=== PATIENT | male | born 1980 | race Two or more races ===

== ENCOUNTER 2019-07-02 03:41 | Inpatient (IN) | payer MEDICAID ==
[~2019-07-02] VITALS: Ht 175.3 cm; Wt 46.3 kg
[2019-07-02] MEDS ORDERED: ZOLPIDEM TARTRATE 10 MG TABLET PO PRN (23:30)
[2019-07-02] MEDS ORDERED: HALOPERIDOL 5 MG TABLET PO PRN (23:30)
[2019-07-02] MEDS ORDERED: LORazepam 2 MG TABLET PO PRN (23:30)
[2019-07-03 05:03] VITALS: BP 97/72
[2019-07-03] MEDS ORDERED: ACETAMINOPHEN 325 MG TABLET PO PRN (06:30)
[2019-07-03] MEDS ORDERED: ALBUTEROL SULFATE HFA 90 MCG/PUFF 8 GM INHALER IH PRN (06:30)
[2019-07-03] MEDS ORDERED: IBUPROFEN 400 MG TABLET PO PRN (06:30)
[2019-07-03] MEDS ORDERED: MAGNESIUM HYDROXIDE SUSPENSION 30 ML UDCUP PO PRN (06:30)
[2019-07-03] MEDS ORDERED: ONDANSETRON HCL 4 MG TABLET PO PRN (06:30)
[2019-07-03] MEDS ORDERED: CloNIDine HCL 0.1 MG TABLET PO PRN (06:30)
[2019-07-03] MEDS ORDERED: MAG HYDROX/AL HYDROX/SIMETH ES 30 ML SUSPENSION UDCUP PO PRN (06:30)
[2019-07-03] MEDS ORDERED: DOCUSATE SODIUM 100 MG CAPSULE PO PRN (06:30)
[2019-07-03] MEDS ORDERED: LOPERAMIDE HCL 2 MG CAPSULE PO PRN (06:30)
[2019-07-03] MEDS ORDERED: PETROLATUM,WHITE 28 GM JELLY TP PRN (06:30)
[2019-07-03] MEDS ORDERED: NICOTINE 14 MG/24 HOUR PATCH TD PRN (06:30)
[2019-07-03] MEDS ORDERED: GuaiFENesin/D-METHORPHAN [SUGAR-FREE] 200-20MG/10 ML SYRUP UDCUP PO PRN (06:30)
[2019-07-03 08:40] LABS: BASOPHILS % (AUTO) 0.9 % (0.0-2.0); EOSINOPHILS % (AUTO) 1.8 % (1.0-6.0); HEMATOCRIT 42.6 % (41-53); HEMOGLOBIN 13.9 g/dL (13.5-17.5); LYMPHOCYTES # (AUTO) 2.4 K/uL (1.0-4.8); LYMPHOCYTES % (AUTO) 36.3 % (22.0-44.0); MEAN CORPUSCULAR HEMOGLOBIN 29.1 pg (26.0-34.0); MEAN CORPUSCULAR HGB CONC 32.6 G/dL (31.0-37.0); MEAN CORPUSCULAR VOLUME 89 fL (80-100); MONOCYTES # (AUTO) 0.7 K/uL (0.1-1.0); MONOCYTES % (AUTO) 10.5 % (2.0-9.0); NEUTROPHILS # (AUTO) 3.3 K/uL (1.8-7.7); NEUTROPHILS % (AUTO) 50.5 % (40.0-70.0); PLATELET COUNT (AUTO) 279 K/uL (150-450); RED BLOOD CELL COUNT(AUTO) 4.78 MIL/uL (4.50-5.90); RED CELL DISTRIBUTION WIDTH 14.5 % (11.5-14.5)
[2019-07-03] MEDS: LevETIRAcetam 250 MG TABLET PO SCH ×2 (08:41→16:43)
[2019-07-03 08:52] LABS: HEMOGLOBIN A1C 5.5 % (4.5-6.2)
[2019-07-03 09:19] LABS: ALANINE AMINOTRANSFERASE 34 U/L (12-78); ALBUMIN 3.8 g/dL (3.4-5.0); ALKALINE PHOSPHATASE 126 U/L (46-116); ANION GAP 5 mmol/L (8-16); ASPARTATE AMINOTRANSFERASE 17 U/L (15-37); BILIRUBIN,TOTAL 0.8 mg/dL (0.1-1.0); CALCIUM, TOTAL 8.9 mg/dL (8.8-10.5); CARBON DIOXIDE 30 mmol/L (22-29); CHLORIDE 102 mmol/L (98-107); CHOL/HDL RATIO 5.5 (4.2-7.3); CHOLESTEROL 210 mg/dL (131-200); CREATININE 0.82 mg/dL (0.60-1.30); FREE T4 (FREE THYROXINE) 1.12 ng/dL (0.76-1.46); GLOMERULAR FILTR. RATE CALC > 60 mL/min (>60); GLUCOSE,RANDOM 87 mg/dL (70-110); HDL CHOLESTEROL 38 mg/dL (40-60); LDL CHOL (CALC.) 158 mg/dL (0-130); POTASSIUM 4.2 mmol/L (3.5-5.1); SODIUM SERUM 137 mmol/L (136-145); THYROID STIMULATING HORMONE 1.43 uIU/mL (0.36-3.74); TRIGLYCERIDES 71 mg/dL (15-150); UREA NITROGEN, BLOOD 15 mg/dL (7-18)
[2019-07-03] MEDS: PARoxetine HCL 20 MG TABLET PO SCH (13:52)
[2019-07-04] MEDS: PARoxetine HCL 20 MG TABLET PO SCH (09:09)
[2019-07-04] MEDS: LevETIRAcetam 250 MG TABLET PO SCH ×2 (09:09→17:40)
[2019-07-04 10:35] VITALS: BP 120/79
[2019-07-04 19:24] VITALS: BP 139/99
[2019-07-05] MEDS: PARoxetine HCL 20 MG TABLET PO SCH (09:05)
[2019-07-05] MEDS: LevETIRAcetam 250 MG TABLET PO SCH ×2 (09:05→16:16)
[2019-07-05 10:00] VITALS: BP 116/73
[2019-07-05 16:09] VITALS: BP 118/77
[2019-07-06 09:28] VITALS: BP 115/87
[2019-07-06] MEDS: PARoxetine HCL 20 MG TABLET PO SCH (09:36)
[2019-07-06] MEDS: LevETIRAcetam 250 MG TABLET PO SCH ×2 (09:36→17:16)
[2019-07-06 19:45] VITALS: BP 116/76
[2019-07-07] MEDS ORDERED: PARO-37 PO (08:49)
[2019-07-07 09:14] VITALS: BP 111/85
[2019-07-07] MEDS: PARoxetine HCL 20 MG TABLET PO SCH (10:21)
[2019-07-07] MEDS: LevETIRAcetam 250 MG TABLET PO SCH (10:21)
[2019-07-07] MEDS ORDERED: LEVE250T55 PO (11:04)
== END 2019-07-07 12:45 | disposition home or self-care (01) | DRG 751 ==
LOC: 3EI 07-03 03:36
DX: F33.3 Major depressive disorder, recurrent, severe with psychotic symptoms (principal); I67.5 Moyamoya disease; C49.9 Malignant neoplasm of connective and soft tissue, unspecified; M41.9 Scoliosis, unspecified; R45.851 Suicidal ideations; G40.909 Epilepsy, unspecified, not intractable, without status epilepticus; H54.62 Unqualified visual loss, left eye, normal vision right eye; F15.10 Other stimulant abuse, uncomplicated; E78.5 Hyperlipidemia, unspecified; F19.10 Other psychoactive substance abuse, uncomplicated; Z59.0 Homelessness; Z91.5 Personal history of self-harm
CPT/HCPCS: 83036; 84439; 84443

== ENCOUNTER 2019-07-03 00:16 | Emergency (ER) | payer MEDICAID, OTHER ==
[~2019-07-03] VITALS: Ht 175.3 cm; Wt 56.8 kg
[2019-07-03 01:14] LABS: BASOPHILS % (AUTO) 0.7 % (0.0-2.0); EOSINOPHILS % (AUTO) 0.9 % (1.0-6.0); HEMATOCRIT 42.8 % (41-53); LYMPHOCYTES # (AUTO) 1.9 K/uL (1.0-4.8); LYMPHOCYTES % (AUTO) 19.1 % (22.0-44.0); MEAN CORPUSCULAR HEMOGLOBIN 29.1 pg (26.0-34.0); MEAN CORPUSCULAR HGB CONC 32.8 G/dL (31.0-37.0); MEAN CORPUSCULAR VOLUME 89 fL (80-100); MONOCYTES % (AUTO) 10.1 % (2.0-9.0); NEUTROPHILS # (AUTO) 6.9 K/uL (1.8-7.7); NEUTROPHILS % (AUTO) 69.2 % (40.0-70.0); PLATELET COUNT (AUTO) 289 K/uL (150-450); RED BLOOD CELL COUNT(AUTO) 4.83 MIL/uL (4.50-5.90); RED CELL DISTRIBUTION WIDTH 14.6 % (11.5-14.5)
[2019-07-03 01:19] LABS: ANION GAP 6 mmol/L (8-16); CALCIUM, TOTAL 8.8 mg/dL (8.8-10.5); CARBON DIOXIDE 33 mmol/L (22-29); CHLORIDE 100 mmol/L (98-107); GLOMERULAR FILTR. RATE CALC > 60 mL/min (>60); GLUCOSE,RANDOM 75 mg/dL (70-110); POTASSIUM 3.3 mmol/L (3.5-5.1); SODIUM SERUM 139 mmol/L (136-145); UREA NITROGEN, BLOOD 21 mg/dL (7-18)
[2019-07-03 01:24] LABS: ALANINE AMINOTRANSFERASE 39 U/L (12-78); ALBUMIN 4.2 g/dL (3.4-5.0); ALKALINE PHOSPHATASE 136 U/L (46-116); ASPARTATE AMINOTRANSFERASE 23 U/L (15-37); BILIRUBIN,TOTAL 0.5 mg/dL (0.1-1.0); TOTAL PROTEIN, SERUM 6.7 g/dL (6.4-8.2)
[2019-07-03] MEDS ORDERED: POTASSIUM CHLORIDE 10 MEQ ER TABLET PO ONE (02:45)
[2019-07-03] MEDS ORDERED: POTASSIUM CHLORIDE 10% 40 MEQ/30 ML LIQUID UDCUP PO ONE (03:00)
[2019-07-03 03:35] VITALS: BP 117/83
== END 2019-07-03 04:15 | disposition other institution (70) ==
LOC: EMS 00:17
DX: F15.10 Other stimulant abuse, uncomplicated (principal); F17.210 Nicotine dependence, cigarettes, uncomplicated
CPT/HCPCS: 36415; 80053; 85025; 99285; G0480